=== PATIENT | female | born 1950 | race Caucasian/White ===

== ENCOUNTER → 2021-02-28 | Outpatient (CLI) | payer MEDICARE, OTHER | LOC: KOH-I 14:00 | DX: N17.9 Acute kidney failure, unspecified (principal); N18.9 Chronic kidney disease, unspecified; R10.9 Unspecified abdominal pain; N13.30 Unspecified hydronephrosis; M47.26 Other spondylosis with radiculopathy, lumbar region; M47.24 Other spondylosis with radiculopathy, thoracic region | CPT/HCPCS: 72070; 72100; 76775 ==

== ENCOUNTER → 2021-03-19 | Outpatient (CLI) | payer MEDICARE, OTHER | LOC: EMI 03-11 09:00 | DX: M54.50 Low back pain, unspecified (principal); M47.26 Other spondylosis with radiculopathy, lumbar region; M47.814 Spondylosis without myelopathy or radiculopathy, thoracic region | CPT/HCPCS: 72146; 72148 ==